=== PATIENT | male | born 1955 | race Caucasian/White ===

== ENCOUNTER → 2017-09-02 | Outpatient (CLI) | payer OTHER ==
[~2017-09-02] MED LIST: AMOX875; BUPR100 PO; BUPR150ER PO; DEPLIN-ALGAL O1 EAC1 PO; DESV50; ERGO400; FISH1000; FLUO20 PO; IBUPROFEN200 MG PO; LAMICTAL XR200 MG PO; LAMO100 PO; LAMO5 PO; LORA.5 PO; LORA1 PO; MIRT15; OXYACE5T; Pristiq100 MG PO; ZOLP10 PO; ZOLP12.5 PO; ZOLP5 PO
== END ==
LOC: LAB 13:51
DX: M54.5 Low back pain (principal)
CPT/HCPCS: 87086

== ENCOUNTER → 2017-12-13 | Outpatient (CLI) | payer OTHER ==
[2017-12-13 15:01] LABS: BASOPHILS ABSOLUTE AUTO 0.04 K/mm3 (0.00-0.23); BASOPHILS PERCENT AUTO 1 % (0-2); EOSINOPHILS ABSOLUTE AUTO 0.06 K/mm3 (0.00-0.68); EOSINOPHILS PERCENT AUTO 1 % (0-6); Hematocrit 43.6 % (37.0-53.0); Hemoglobin 14.7 g/dL (13.5-17.5); IMMATURE GRAN ABSOLUTE AUTO 0.03 K/mm3 (0.00-0.10); IMMATURE GRAN PERCENT AUTO 0 % (0-1); LYMPHOCYTES PERCENT AUTO 24 % (21-46); MONOCYTES ABSOLUTE AUTO 0.45 K/mm3 (0.16-1.47); MONOCYTES PERCENT AUTO 6 % (4-13); Mean Corpuscular HGB 29.2 pg (26.0-34.0); Mean Corpuscular HGB Conc 33.7 g/dL (31.5-36.5); Mean Corpuscular Volume 87 fL (80-100); Mean Platelet Volume 10.3 fL (9.1-12.4); NEUTROPHILS ABSOLUTE AUTO 4.85 K/mm3 (1.96-9.15); NEUTROPHILS PERCENT AUTO 68 % (41-73); Platelet Count 227 K/mm3 (150-400); RDW Coefficient Variation 12.1 % (11.7-14.2); RDW Standard Deviation 38.4 fL (35.1-46.3); Red Blood Cell Count 5.04 M/mm3 (4.30-5.90); White Blood Cell Count 7.13 K/mm3 (4.00-11.30)
[2017-12-13 15:21] LABS: Alanine Aminotransfer (ALT/SGP 25 U/L (12-78); Albumin, Blood 3.8 g/dL (3.4-5.0); Albumin/Globulin Ratio 1.1 (0.8-1.8); Alk Phos 95 U/L (40-126); Anion Gap 8 mmol/L (6-16); Aspartate Aminotrans (AST/SGOT 15 U/L (12-37); Bilirubin, Total 0.3 mg/dL (0.1-1.0); Blood Urea Nitrogen 16 mg/dL (8-24); Bun/Creatinine Ratio 13.4 (12.0-20.0); CO2, Blood 31 mmol/L (21-32); CPK Creatine Kinase 69 U/L (39-308); Calcium, Blood 9.1 mg/dL (8.5-10.1); Chloride, Blood 103 mmol/L (98-108); Creatinine, Blood 1.19 mg/dL (0.60-1.20); Free Thyroxine 1.04 ng/dL (0.70-1.60); Globulin, Blood 3.4 g/dL (2.2-4.0); Glomerular Filtration Rate >60 (60-); Glucose, Blood 110 mg/dL (70-99); Potassium, Blood 4.4 mmol/L (3.5-5.5); Sodium, Blood 142 mmol/L (136-145); Thyroid Stimulating Hormone 0.928 uIU/mL (0.360-4.800); Total Protein, Blood 7.2 g/dL (6.4-8.2)
[2017-12-13 15:24] LABS: Troponin I <0.017 ng/mL (0.000-0.040)
== END | disposition home or self-care (01) ==
LOC: LAB SHORT 14:53 → LAB EV 14:53
PROVIDERS: General Practice
DX: R07.9 Chest pain, unspecified (principal); R53.81 Other malaise
CPT/HCPCS: 80053; 82550; 84439; 84443; 84484; 85025; 85379

== ENCOUNTER → 2019-07-19 | Outpatient (CLI) | payer OTHER ==
[2019-07-19 14:56] LABS: Source, Urine Clean Catch
[2019-07-19 18:11] LABS: Bilirubin, Urine Neg (Neg); Blood, Urine 4+ (Neg); Glucose Qualitative, Urine Neg (Neg); Ketones, Urine Neg (Neg); Leukocyte Esterase, Urine 2+ (Neg); Nitrite, Urine Neg (Neg); Protein, Urine Neg (Neg); Specific Gravity, Urine 1.015 (1.003-1.022); Urobilinogen, Urine NORM (Normal)
[2019-07-19 18:40] LABS: Appearance, Urine Clear (Clear); Color, Urine Yellow (P-Yellow)
[2019-07-19 18:41] LABS: Bacteria Many /hpf; Red Blood Cells, Urine 0-2 /hpf (0-2); Squamous Epithelial Cells Not Seen /hpf (Few); White Blood Cells, Urine 25-50 /hpf (0-5)
== END | disposition home or self-care (01) ==
LOC: LAB SHORT 10:45 → LAB 10:45
PROVIDERS: Physician Assistant
DX: R39.15 Urgency of urination (principal)
CPT/HCPCS: 81001; 87077; 87086; 87186

== ENCOUNTER 2019-10-12 07:20 | Emergency (ER) | payer OTHER ==
[~2019-10-12] VITALS: Ht 185.4 cm; Wt 88.5 kg
[2019-10-12] MEDS ORDERED: MYRBETRIQ50 MG PO (07:38)
[2019-10-12] MEDS ORDERED: CLONAZEPAM0.5 M1 PO (07:38)
[2019-10-12 08:25] LABS: BASOPHILS ABSOLUTE AUTO 0.04 K/mm3 (0.00-0.23); BASOPHILS PERCENT AUTO 1 % (0-2); EOSINOPHILS ABSOLUTE AUTO 0.06 K/mm3 (0.00-0.68); EOSINOPHILS PERCENT AUTO 1 % (0-6); Hematocrit 48.5 % (37.0-53.0); Hemoglobin 15.6 g/dL (13.5-17.5); IMMATURE GRAN ABSOLUTE AUTO 0.02 K/mm3 (0.00-0.10); IMMATURE GRAN PERCENT AUTO 0 % (0-1); LYMPHOCYTES PERCENT AUTO 29 % (21-46); MONOCYTES ABSOLUTE AUTO 0.55 K/mm3 (0.16-1.47); MONOCYTES PERCENT AUTO 7 % (4-13); Mean Corpuscular HGB 28.7 pg (26.0-34.0); Mean Corpuscular HGB Conc 32.2 g/dL (31.5-36.5); Mean Corpuscular Volume 89 fL (80-100); Mean Platelet Volume 10.5 fL (9.1-12.4); NEUTROPHILS ABSOLUTE AUTO 4.67 K/mm3 (1.96-9.15); NEUTROPHILS PERCENT AUTO 62 % (41-73); Platelet Count 212 K/mm3 (150-400); RDW Standard Deviation 39.2 fL (35.1-46.3); Red Blood Cell Count 5.44 M/mm3 (4.30-5.90); White Blood Cell Count 7.54 K/mm3 (4.00-11.30)
[2019-10-12 08:49] LABS: Alanine Aminotransfer (ALT/SGP 28 U/L (12-78); Albumin, Blood 3.7 g/dL (3.4-5.0); Alk Phos 87 U/L (50-136); Anion Gap 5 mmol/L (6-16); Aspartate Aminotrans (AST/SGOT 16 U/L (12-37); Bilirubin, Total 0.5 mg/dL (0.1-1.0); Blood Urea Nitrogen 14 mg/dL (8-24); Bun/Creatinine Ratio 13.5 (12.0-20.0); CO2, Blood 28 mmol/L (21-32); Calcium, Blood 8.7 mg/dL (8.5-10.1); Chloride, Blood 108 mmol/L (98-108); Creatinine, Blood 1.04 mg/dL (0.60-1.20); Globulin, Blood 3.6 g/dL (2.2-4.0); Glomerular Filtration Rate >60 (60-); Glucose, Blood 114 mg/dL (70-99); Magnesium, Blood 1.9 mg/dL (1.6-2.4); Potassium, Blood 3.6 mmol/L (3.5-5.5); Sodium, Blood 141 mmol/L (136-145); Total Protein, Blood 7.3 g/dL (6.4-8.2); Troponin I <0.015 ng/mL (0.000-0.040)
== END 2019-10-12 10:00 | disposition home or self-care (01) ==
LOC: ER 07:20
PROVIDERS: Emergency Medicine
DX: I48.91 Unspecified atrial fibrillation (principal); F41.9 Anxiety disorder, unspecified; F32.9 Major depressive disorder, single episode, unspecified; Z88.2 Allergy status to sulfonamides; Z79.899 Other long term (current) drug therapy
CPT/HCPCS: 36415; 71045; 80053; 83735; 84484; 85025; 93005; 93010; 96374; 96375; 99285-25; J2060

== ENCOUNTER → 2019-11-26 | Outpatient (CLI) | payer OTHER ==
[~2019-11-26] MED LIST changes: +CLONAZEPAM0.5 M1 PO; +MYRBETRIQ50 MG PO
[2019-11-26 11:18] LABS: Source, Urine Clean Catch
[2019-11-26 13:57] LABS: Bilirubin, Urine Neg (Neg); Blood, Urine 4+ (Neg); Glucose Qualitative, Urine Neg (Neg); Ketones, Urine Neg (Neg); Leukocyte Esterase, Urine Neg (Neg); Nitrite, Urine Neg (Neg); Protein, Urine Neg (Neg); Specific Gravity, Urine 1.015 (1.003-1.022); Urobilinogen, Urine NORM (Normal)
[2019-11-26 14:06] LABS: Appearance, Urine Clear (Clear); Color, Urine Yellow (P-Yellow)
[2019-11-26 14:07] LABS: White Blood Cells, Urine 0-2 /hpf (0-5)
[2019-11-26 14:08] LABS: Bacteria Rare /hpf; Squamous Epithelial Cells Not Seen /hpf (Few)
== END | disposition home or self-care (01) ==
LOC: LAB SHORT 11:17 → LAB 11:17
PROVIDERS: Nurse Practitioner
DX: N39.0 Urinary tract infection, site not specified (principal)
CPT/HCPCS: 81001; 87086

== ENCOUNTER → 2019-12-08 | Outpatient (CLI) | payer OTHER ==
[2019-12-08 07:35] LABS: Source, Urine Clean Catch
[2019-12-08 14:34] LABS: Bilirubin, Urine Neg (Neg); Blood, Urine 3+ (Neg); Glucose Qualitative, Urine Neg (Neg); Ketones, Urine Neg (Neg); Leukocyte Esterase, Urine Neg (Neg); Nitrite, Urine Neg (Neg); Protein, Urine Neg (Neg); Urobilinogen, Urine NORM (Normal)
[2019-12-08 14:44] LABS: Appearance, Urine Clear (Clear); Color, Urine Yellow (P-Yellow)
[2019-12-08 14:46] LABS: Bacteria Few /hpf; Squamous Epithelial Cells Not Seen /hpf (Few); White Blood Cells, Urine 0-2 /hpf (0-5)
== END | disposition home or self-care (01) ==
LOC: LAB SHORT 07:33 → LAB 07:33 → LAB FUT 12-06 10:35 → EDSTATUS 12-06 10:35
PROVIDERS: Urology
DX: N39.0 Urinary tract infection, site not specified (principal)
CPT/HCPCS: 81001

== ENCOUNTER → 2020-05-31 | Outpatient (CLI) | payer OTHER ==
[2020-06-01 09:05] LABS: Stool Occult Bld Immuno 1 Negative (NEGATIVE); Stool Occult Bld Immuno 2 Negative (NEGATIVE)
== END | disposition home or self-care (01) ==
LOC: LAB 10:00 → LAB SHORT 10:00
PROVIDERS: Internal Medicine Gastroenterology
DX: Z12.11 Encounter for screening for malignant neoplasm of colon (principal)
CPT/HCPCS: G0328

== ENCOUNTER 2021-07-11 08:49 | Day surgery (SDC) | payer OTHER ==
[~2021-07-11] VITALS: Ht 185.4 cm; Wt 90.1 kg
[~2021-07-11 08:49] MED LIST changes: +ABILIFY MYCITE10 M2; +Aspir 8181 MG; +CLON.5; +DIAZ10; +DULO60; +OXYC5; +PANT40; +RISPERDAL; +SERT50; +TRAM50; +VITAMIN D5000 UNIT; +ZOLP10; +[UNRECOGNIZED DRUG - OTHER]
== END 2021-07-11 10:46 | disposition home or self-care (01) ==
LOC: ORSCSDS 08:49
PROVIDERS: Internal Medicine Gastroenterology
PROC: 0DB58ZX Excision of Esophagus, Via Natural or Artificial Opening Endoscopic, Diagnostic (ICD-10-PCS; principal; 2021-07-11 10:00)
DX: K21.9 Gastro-esophageal reflux disease without esophagitis (principal); G47.30 Sleep apnea, unspecified; Z79.899 Other long term (current) drug therapy
CPT/HCPCS: 88305; J2704; J7120

== ENCOUNTER → 2021-07-16 | Outpatient (CLI) | payer OTHER | END | disposition home or self-care (01) | LOC: LAB SHORT 12:32 | DX: N39.0 Urinary tract infection, site not specified (principal) | CPT/HCPCS: 87086 ==

== ENCOUNTER → 2021-08-06 | Outpatient (CLI) | payer OTHER | END | disposition home or self-care (01) | LOC: LAB 13:13 → LAB SHORT 13:13 | DX: N39.0 Urinary tract infection, site not specified (principal) | CPT/HCPCS: 87086 ==

== ENCOUNTER → 2022-03-09 | Outpatient (CLI) | payer OTHER | END | disposition home or self-care (01) | LOC: LAB SHORT 15:58 → LAB 15:58 | DX: N39.0 Urinary tract infection, site not specified (principal) | CPT/HCPCS: 87077; 87086; 87186 ==

== ENCOUNTER → 2022-04-05 | Outpatient (CLI) | payer OTHER | END | disposition home or self-care (01) | LOC: LAB 12:02 → LAB SHORT 12:02 | DX: N39.0 Urinary tract infection, site not specified (principal) | CPT/HCPCS: 87077; 87086; 87186 ==

== ENCOUNTER 2023-10-27 21:58 | Emergency (ER) | payer OTHER ==
[~2023-10-27] VITALS: Ht 185.4 cm; Wt 90.7 kg
[2023-10-27 22:54] LABS: Source, Urine Clean Catch
[2023-10-27 22:56] LABS: Blood, Urine 4+ (Neg); Glucose Qualitative, Urine Neg (Neg); Ketones, Urine Neg (Neg); Leukocyte Esterase, Urine Neg (Neg); Nitrite, Urine Pos (Neg); Protein, Urine Neg (Neg); Specific Gravity, Urine 1.015 (1.003-1.022); Urobilinogen, Urine 2+ (Normal)
[2023-10-27 22:59] LABS: Bilirubin, Urine 2+ (Neg); Color, Urine Orange (P-Yellow)
[2023-10-27 23:03] LABS: Appearance, Urine Clear (Clear)
[2023-10-27 23:05] LABS: Bacteria Rare /hpf; Squamous Epithelial Cells Rare /hpf (Few); White Blood Cells, Urine Not Seen /hpf (0-5)
[2023-10-27] MEDS ORDERED: Ketorolac Tromethamine 30mg Vial IV ONE (23:25)
[2023-10-27 23:35] LABS: BASOPHILS ABSOLUTE AUTO 0.05 K/mm3 (0.00-0.23); BASOPHILS PERCENT AUTO 1 % (0-2); EOSINOPHILS ABSOLUTE AUTO 0.09 K/mm3 (0.00-0.68); EOSINOPHILS PERCENT AUTO 1 % (0-6); Hematocrit 41.1 % (37.0-53.0); Hemoglobin 13.8 g/dL (13.5-17.5); IMMATURE GRAN ABSOLUTE AUTO 0.03 K/mm3 (0.00-0.10); IMMATURE GRAN PERCENT AUTO 0 % (0-1); LYMPHOCYTES PERCENT AUTO 29 % (21-46); MONOCYTES ABSOLUTE AUTO 0.64 K/mm3 (0.16-1.47); MONOCYTES PERCENT AUTO 9 % (4-13); Mean Corpuscular HGB 28.6 pg (26.0-34.0); Mean Corpuscular HGB Conc 33.6 g/dL (31.5-36.5); Mean Corpuscular Volume 85 fL (80-100); Mean Platelet Volume 9.9 fL (9.1-12.4); NEUTROPHILS ABSOLUTE AUTO 4.36 K/mm3 (1.96-9.15); NEUTROPHILS PERCENT AUTO 60 % (41-73); Platelet Count 207 K/mm3 (150-400); RDW Coefficient Variation 12.3 % (11.7-14.2); RDW Standard Deviation 38.3 fL (35.1-46.3); Red Blood Cell Count 4.82 M/mm3 (4.30-5.90); White Blood Cell Count 7.27 K/mm3 (4.00-11.30)
[2023-10-27 23:58] LABS: Albumin, Blood 3.5 g/dL (3.4-5.0); Albumin/Globulin Ratio 1.1 (0.8-1.8); Bilirubin, Total 0.3 mg/dL (0.1-1.0); Bun/Creatinine Ratio 14.2 (12.0-20.0); Calcium, Blood 8.8 mg/dL (8.5-10.1); Creatinine, Blood 1.06 mg/dL (0.60-1.20); Globulin, Blood 3.2 g/dL (2.2-4.0); Potassium, Blood 4.1 mmol/L (3.5-5.5); Total Protein, Blood 6.7 g/dL (6.4-8.2)
[2023-10-28 01:10] VITALS: BP 143/91
== END 2023-10-28 01:11 | disposition home or self-care (01) ==
LOC: ER 21:58
PROVIDERS: Physician Assistant; Student in an Organized Health Care Education/Training Program
DX: K59.00 Constipation, unspecified (principal); Z88.2 Allergy status to sulfonamides; Z88.8 Allergy status to other drugs, medicaments and biological substances; Z88.1 Allergy status to other antibiotic agents; Z79.899 Other long term (current) drug therapy
CPT/HCPCS: 74177; 80053; 81001; 85025; 87086; 96374-59; 99284-25; J1885; Q9967

== ENCOUNTER → 2023-10-27 | Outpatient (CLI) | payer OTHER | LOC: LAB 18:03 → LAB SHORT 18:03 | DX: R30.0 Dysuria (principal) | CPT/HCPCS: 87086 ==

== ENCOUNTER 2024-10-27 20:27 | Emergency (ER) | payer OTHER ==
[~2024-10-27] VITALS: Ht 185.4 cm; Wt 88.5 kg
[2024-10-27 20:49] LABS: BASOPHILS ABSOLUTE AUTO 0.08 K/mm3 (0.00-0.23); BASOPHILS PERCENT AUTO 1 % (0-2); EOSINOPHILS ABSOLUTE AUTO 0.18 K/mm3 (0.00-0.68); EOSINOPHILS PERCENT AUTO 1 % (0-6); Hematocrit 41.1 % (37.0-53.0); Hemoglobin 13.9 g/dL (13.5-17.5); IMMATURE GRAN ABSOLUTE AUTO 0.03 K/mm3 (0.00-0.10); IMMATURE GRAN PERCENT AUTO 0 % (0-1); LYMPHOCYTES ABSOLUTE AUTO 3.46 K/mm3 (0.84-5.20); LYMPHOCYTES PERCENT AUTO 28 % (21-46); MONOCYTES ABSOLUTE AUTO 1.04 K/mm3 (0.16-1.47); MONOCYTES PERCENT AUTO 8 % (4-13); Mean Corpuscular HGB Conc 33.8 g/dL (31.5-36.5); Mean Corpuscular Volume 89 fL (80-100); NEUTROPHILS ABSOLUTE AUTO 7.81 K/mm3 (1.96-9.15); NEUTROPHILS PERCENT AUTO 62 % (41-73); Platelet Count 193 K/mm3 (150-400); RDW Coefficient Variation 12.2 % (11.7-14.2); RDW Standard Deviation 39.5 fL (35.1-46.3); Red Blood Cell Count 4.63 M/mm3 (4.30-5.90)
[2024-10-27 21:07] LABS: Albumin, Blood 3.7 g/dL (3.4-5.0); Albumin/Globulin Ratio 1.1 (0.8-1.8); Bilirubin, Total 0.2 mg/dL (0.1-1.0); Bun/Creatinine Ratio 17.6 (12.0-20.0); Calcium, Blood 8.7 mg/dL (8.5-10.1); Creatinine, Blood 1.08 mg/dL (0.60-1.20); Globulin, Blood 3.4 g/dL (2.2-4.0); Potassium, Blood 3.5 mmol/L (3.5-5.5); Total Protein, Blood 7.1 g/dL (6.4-8.2)
[2024-10-27 22:27] VITALS: BP 131/75
== END 2024-10-27 22:29 | disposition home or self-care (01) ==
LOC: ER 20:27
PROVIDERS: Student in an Organized Health Care Education/Training Program
DX: I48.0 Paroxysmal atrial fibrillation (principal); I10 Essential (primary) hypertension; Z88.8 Allergy status to other drugs, medicaments and biological substances; Z88.2 Allergy status to sulfonamides; Z88.1 Allergy status to other antibiotic agents; Z79.899 Other long term (current) drug therapy
CPT/HCPCS: 71045; 80053; 83735; 84484; 85025; 93005; 93010; 99285-25

== ENCOUNTER 2025-01-30 10:42 | Emergency (ER) | payer OTHER ==
[~2025-01-30] VITALS: Ht 185.4 cm; Wt 83.0 kg
[2025-01-30 10:48] VITALS: BP 118/86
[2025-01-30 11:15] LABS: BASOPHILS ABSOLUTE AUTO 0.04 K/mm3 (0.00-0.23); BASOPHILS PERCENT AUTO 1 % (0-2); EOSINOPHILS ABSOLUTE AUTO 0.05 K/mm3 (0.00-0.68); EOSINOPHILS PERCENT AUTO 1 % (0-6); Hematocrit 42.0 % (37.0-53.0); Hemoglobin 13.6 g/dL (13.5-17.5); IMMATURE GRAN ABSOLUTE AUTO 0.02 K/mm3 (0.00-0.10); IMMATURE GRAN PERCENT AUTO 0 % (0-1); LYMPHOCYTES ABSOLUTE AUTO 1.61 K/mm3 (0.84-5.20); LYMPHOCYTES PERCENT AUTO 20 % (21-46); MONOCYTES ABSOLUTE AUTO 0.47 K/mm3 (0.16-1.47); MONOCYTES PERCENT AUTO 6 % (4-13); Mean Corpuscular HGB Conc 32.4 g/dL (31.5-36.5); Mean Corpuscular Volume 91 fL (80-100); NEUTROPHILS ABSOLUTE AUTO 5.87 K/mm3 (1.96-9.15); NEUTROPHILS PERCENT AUTO 73 % (41-73); NRBC ABSOLUTE 0.00 K/mm3 (0.00-0.02); NRBC Auto 0.0 /100 WBC (0.0-0.2); Platelet Count 236 K/mm3 (150-400); RDW Coefficient Variation 12.5 % (11.7-14.2); RDW Standard Deviation 41.1 fL (35.1-46.3)
[2025-01-30 11:47] LABS: Alanine Aminotransfer (ALT/SGP 19.0 U/L (12-78); Albumin, Blood 3.3 g/dL (3.4-5.0); Albumin/Globulin Ratio 0.8 (0.8-1.8); Anion Gap 6.0 mmol/L (3-11); Aspartate Aminotrans (AST/SGOT 17.0 U/L (12-37); Bilirubin, Total 0.3 mg/dL (0.1-1.0); Blood Urea Nitrogen 15.0 mg/dL (8-24); CO2, Blood 28.0 mmol/L (21-32); Calcium, Blood 8.6 mg/dL (8.5-10.1); Chloride, Blood 108.0 mmol/L (98-108); Creatinine, Blood 0.88 mg/dL (0.60-1.20); Globulin, Blood 3.9 g/dL (2.2-4.0); Glucose, Blood 95.0 mg/dL (70-99); Potassium, Blood 4.1 mmol/L (3.5-5.5); Sodium, Blood 138.0 mmol/L (136-145); Total Protein, Blood 7.2 g/dL (6.4-8.2)
[2025-01-30] MEDS ORDERED: MECL25 PO (13:05)
== END 2025-01-30 13:26 | disposition home or self-care (01) ==
LOC: ER 10:42
PROVIDERS: Emergency Medicine
DX: R42 Dizziness and giddiness (principal); Z88.2 Allergy status to sulfonamides; Z88.1 Allergy status to other antibiotic agents; Z88.8 Allergy status to other drugs, medicaments and biological substances
CPT/HCPCS: 80053; 84484; 85025; 93005; 93010; 99284-25